=== PATIENT | male | born 1955 | race Caucasian/White ===

== ENCOUNTER 2017-10-02 11:13 | Emergency (ER) | payer OTHER ==
[~2017-10-02] VITALS: Ht 190.5 cm; Wt 96.2 kg
--- NOTE | 2017-10-02 12:06 | ED UPPER/LOWER EXTREMITY COMPL ---
History of Present Illness General Chief Complaint: General Adult Stated Complaint: CONTINOUS BLEEDING FROM SURG SITE,? LOW BP Source: patient, family, old records Exam Limitations: no limitations Vital Signs & Intake/Output Vital Signs & Intake/Output Vital Signs Date Time Temp Pulse Resp B/P B/P Pulse O2 O2 Flow FiO2 Mean Ox Delivery Rate 10/02 1351 98.1 74 18 122/66 98 10/02 1348 Room Air 10/02 1117 97.8 82 18 129/72 99 Room Air Allergies Coded Allergies: NO KNOWN ALLERGIES (09/12/12) Reconcile Medications Apixaban (Eliquis) 2.5 MG TABLET 1 TAB PO BID BLOOD THINNER (Reported) Bupropion HCl (Wellbutrin XL) 300 MG TAB.ER.24H 1 TAB PO DAILY MENTAL HEALTH (Reported) Lisinopril 5 MG TABLET 1 TAB PO DAILY HEART (Reported) Triage Note: 62 YO MALE TO TRIAGE C/O BLEEDING FROM L HIP SURGICAL SITE, STATES HE IS S/P L HIP REPLACEMENT ON 09/24. PT STATES HE WOKE UP THIS AM AND THE SHEETS WERE SATURATED WITH BLOOD. STATES THE VISITNG NURSE CAME AND ADVISED HE COME UP. STATES HE IS ON ELIQUIS BUT HELD THE DOSE THIS AM D/T THE BLOOD. Triage Nurses Notes Reviewed? yes Onset: Abrupt Duration: day(s): (1), better, constant Timing: single episode today Severity: mild Severity Numbers: 1 Pain/Injury Location: Left: Hip. No Modifying Factors: none Associated Symptoms: denies HPI: 62-year-old male status post left hip arthroplasty one week ago at [facility] by Dr. ornelas resents to the ER for evaluation after he states he woke up this morning with a significant amount of bloody discharge from his surgical incision. The visiting nurse came out to check him he was found to be hypotensive the patient is unsure what his blood pressure was however was advised to come to the ER. He denies any fevers chills he is currently on elliiquis which he held todays dose. Denies any redness warmth or swelling at the surgical incision site. No purulence he denies any complications with the surgery, the patient denies any complaints including dizziness light has chest pain shortness of breath at this time no known trauma Past History Travel History Traveled to [place] past 21 day No Medical History Any Pertinent Medical History? 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 No Review of Systems Review of Systems Constitutional: Reports: see HPI. Comments Review of systems: See HPI, All other systems negative. Constitutional, no chills no fever, no malaise HEENT: no sore throat no congestion, Cardiovascular: No chest pain , no palpitation Skin: no rashes, no change in skin Respiratory: No dyspnea no cough n GI: No nausea no vomiting Muscle skeletal: No joint pain, no back pain, no neck pain, Neurologic: , no headache Heme/endocrine: No bruising Physical Exam Physical Exam General Appearance: well developed/nourished, no apparent distress, alert Comments: Well-developed well-nourished patient in no apparent distress. HEENT: Atraumatic, extraocular motion intact Neck: Supple, FROM Back: FROM Cardiovascular: Regular rate and rhythms no murmurs Respiratory: No respiratory distress. Patient speaking in full complete sentences. Breath sounds clear to auscultation bilaterally: NO W/R/R Upper Extremities: full range of motion Hip/Pelvis: [place] in place to surgical's incision which is clean dry and intact there is no active bleeding there is no surrounding induration or fluctuance no surrounding erythema, nontender, Stable. Knee: Atraumatic/stable. FROM. No joint swelling, no effusion. Leg: Atraumatic. Nontender. No edema, 5 out of 5 strength in the lower extremity, normal dorsiflexion of great toe bilaterally, gross sensation is intact Ankle/Foot: Atraumatic/stable. Skin intact. FROM. No swelling, no effusion. No laxity on exam Pulses: Normal/equal DP/PT pulses bilaterally. Brisk cap refill Neuro: awake, alert, and oriented to person, place and time. There were no obvious focal neurologic abnormalities. Skin: Warm & dry;No appreciable rash on exposed skin Psych: Mood affect normal, normal memory normal judgment. Progress Differential Diagnosis: contusion, abscess cellulitis septic arthritis bleeding disorder Plan of Care: Orders Procedure Date/time Status PARTIAL THROMBOPLASTIN TIME 10/02 1203 Complete PROTHROMBIN TIME 10/02 1203 Complete CBC WITHOUT DIFFERENTIAL 10/02 1203 Complete BASIC METABOLIC PANEL 10/02 1203 Complete Laboratory Tests 10/02/17 1232: Anion Gap 9, Estimated GFR > 60, BUN/Creatinine Ratio 17.8, Glucose 98, Calcium 9.4, PT 12.7 H, INR 1.16, APTT 27, CBC w Diff NO MAN DIFF REQ, RBC 3.47 L, MCV 92.1, MCH 32.1 H, MCHC 34.8, RDW 12.5, MPV 6.8 L, Gran % 81.1 H, Lymphocytes % 7.9 L, Monocytes % 9.3, Eosinophils % 1.3, Basophils % 0.4, Absolute Granulocytes 8.3 H, Absolute Lymphocytes 0.8 L, Absolute Monocytes 1.0 H, Absolute Eosinophils 0.1, Absolute Basophils 0 Labs ordered case discussed with Dr. Hassan who agrees with plan. 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 who will inform the orthopedist of the results, the patient is scheduled to see him tomorrow patient has no white count afebrile no signs of current infection I discussed with them plan of care copy of all his labs were provided return precautions were discussed at length with the patient he feels comfortable with plan and discharge at this time there is been no bleeding with the dressing that I placed a patient with Surgicel, ab pads and tegaderm dressing Departure Departure Time of Disposition: 1341 Disposition: HOME OR SELF CARE Condition: Stable Clinical Impression Primary Impression: Visit for wound check Referrals: Lesly Maldonado MD (PCP/Family) Additional Instructions: Follow up with your orthopedist tomorrow as scheduled. Keep dressing in place until you are sen by dr richmond. Go to [facility] if you redevelop bleeding or have any other concerns. Departure Forms: Customer Survey General Discharge Information
[2017-10-02] MEDS ORDERED: WELLBUTRIN XL300 M2 PO (12:26)
[2017-10-02] MEDS ORDERED: LISINOPRIL5 M1 PO (12:26)
[2017-10-02] MEDS ORDERED: ELIQUIS2.5 M1 PO (12:27)
[2017-10-02 12:47] LABS: ABSOLUTE BASOPHIL COUNT 0 /CUMM (0.0-0.2); ABSOLUTE EOSINOPHIL COUNT 0.1 /CUMM (0.0-0.7); ABSOLUTE GRANULOCYTE CT 8.3 /CUMM (1.4-6.5); ABSOLUTE LYMPH COUNT 0.8 /CUMM (1.2-3.4); BASOPHIL % 0.4 % (0.0-2.0); EOSINOPHIL % 1.3 % (0-5); GRANULOCYTE % 81.1 % (42.2-75.2); MEAN CORPUSCULAR HGB 32.1 PG (27.0-31.0); MEAN CORPUSCULAR HGB CONC 34.8 G/DL (33.0-37.0); MEAN CORPUSCULAR VOLUME 92.1 FL (80.0-94.0); MEAN PLATELET VOLUME 6.8 FL (7.4-10.4); PLATELET COUNT 305 /CUMM (130-400); RBC DISTRIBUTION WIDTH 12.5 % (11.5-14.5); RED BLOOD CELL CT 3.47 /CUMM (4.70-6.10); WHITE BLOOD CELL COUNT 10.3 /CUMM (4.8-10.8)
[2017-10-02 12:57] LABS: PT 12.7 SEC (9.4-12.5); PTT 27 SEC (25-37)
[2017-10-02 13:51] VITALS: BP 122/66
== END 2017-10-02 13:59 ==
LOC: ERH 11:13
PROVIDERS: Physician Assistant Medical
DX: Z48.00 Encounter for change or removal of nonsurgical wound dressing (principal)
CPT/HCPCS: 99281